=== PATIENT | female | born 1985 | race African-American/Black ===

== ENCOUNTER 2022-02-05 16:05 | Emergency (ER) | payer OTHER ==
[~2022-02-05] VITALS: Ht 165.1 cm; Wt 73.5 kg
[2022-02-05] MEDS ORDERED: IV NS 0.9% 1,000 ML BAG IV ONE (18:00)
--- NOTE | 2022-02-05 18:45 | NUR ---
urine sample collected sent to lab.
--- NOTE | 2022-02-05 18:50 | NUR ---
blood sample taken sent to lab
--- NOTE | 2022-02-05 19:00 | NUR ---
Addendum: IV end times 1. NS IVF 1000 ml start time: 1900 pm end time: 2000 pm PIV # 20 RAC port # 1
[2022-02-05 19:04] LABS: BILIRUBIN,URINE NEGATIVE (NEGATIVE); COLOR,URINE YELLOW (YELLOW); LEUKOCYTE ESTERASE ,URINE NEGATIVE (NEGATIVE); NITRITE, URINE NEGATIVE (NEGATIVE); PROTEIN,URINE NEGATIVE (NEGATIVE); UGLUCOSE NEGATIVE (NEGATIVE); UROBILINOGEN,URINE 0.2 EU/dL (0.2)
[2022-02-05 19:04] LABS: CALCIUM, SERUM 9.6 mg/dL (8.5-10.1); CREATININE 0.9 mg/dL (0.6-1.3); POTASSIUM 3.8 mmol/L (3.5-5.1)
[2022-02-05 19:07] LABS: BACTERIA,URINE Rare /HPF (None Seen); RBC,URINE 0-2 /HPF (0-2); SQUAMOUS EPITHELIAL CELL,UR Few /HPF (None Seen); WBC,URINE 0-2 /HPF (0-3)
--- NOTE | 2022-02-05 19:08 | NUR ---
came in for abdominal pain. established IV line right AC. alert and oriented
[2022-02-05 19:10] LABS: ALBUMIN 4.2 g/dL (3.4-5.0); BILIRUBIN,DIRECT 0.2 mg/dL (0.0-0.2); TOTAL PROTEIN, SERUM 8.6 g/dL (6.4-8.2)
--- NOTE | 2022-02-05 19:28 | NUR ---
RECEIVED REPORT FROM CODY SMITH. PATIENT IS AAOX4 CAME EARLIER WITH CC OF ABDOMINAL PAIN. PATIENT HAS NO PAIN AT THE MOMENT. ABLE TO MAKE NEEDS KNOWN. ATTACHED TO MONITOR. VITALS CHECKED.
[2022-02-05 19:50] LABS: BASOPHILS % (AUTO) 0.3 % (0.0-2.0); EOSINOPHILS % (AUTO) 0.2 % (0.0-6.0); HEMATOCRIT 42 % (33-45); HEMOGLOBIN 13.8 g/dL (11.5-14.8); LYMPHOCYTES # (AUTO) 1.5 K/uL (0.8-4.8); LYMPHOCYTES % (AUTO) 15.1 % (20.0-44.0); MEAN CORPUSCULAR HGB CONC 33 g/dl (31.0-36.0); MEAN CORPUSCULAR VOLUME 84 fL (82-100); MONOCYTES # (AUTO) 0.5 K/uL (0.1-1.30); MONOCYTES % (AUTO) 5.2 % (2.0-12.0); NEUTROPHILS # (AUTO) 7.8 K/uL (1.8-8.9); NEUTROPHILS % (AUTO) 79.2 % (43.0-81.0); PLATELET COUNT (AUTO) 207 K/uL (150-450); WHITE BLOOD COUNT (AUTO) 9.8 K/uL (4.3-11.0)
--- NOTE | 2022-02-05 20:23 | NUR ---
Patient discharged to home in stable condition. Written and verbal after care instructions given. Patient verbalizes understanding of instruction. IV removed. Catheter intact and site benign. Pressure and 4x4 applied to site. No bleeding noted.Pt ambulatory with a steady gait
[2022-02-05] MEDS ORDERED: TAMS-12 PO (20:25)
[2022-02-05] MEDS ORDERED: IBUP-1955 PO (20:25)
[2022-02-05 20:59] VITALS: BP 136/84
== END 2022-02-05 20:23 | disposition home or self-care (01) ==
LOC: ER 16:07
DX: N20.0 Calculus of kidney (principal); Z79.899 Other long term (current) drug therapy
CPT/HCPCS: 99285; 96360; 76700; 93005; 85025; 80048; 83690; 80076; 84703; 81001; 36415; J7030